=== PATIENT | male | born 1950 | race Caucasian/White ===

== ENCOUNTER 2020-03-24 09:30 | Outpatient (CLI) | payer OTHER, MEDICARE ==
--- NOTE | 2020-03-24 15:14 | MRI ---
MRI LUMBAR SPINE WITHOUT CONTRAST: 03/24/20 INDICATIONS: Left lumbar radiculopathy. History of prior lumbar surgery. The last surgery in 2003 according to rick hnologist. COMPARISON: Comparison made to a prior MRI of lumbar spine dated January 2010. That exam revealed a disc extrusion into the right neural foramina at L3-4 with question small sequestered disc fragment. FINDINGS: The lumbar vertebrae maintain normal height and alignment. Moderate degenerative changes are noted. D egenerative osteophytes from the anterior and lateral vertebrae. Degenerative disc changes at multipl e levels. Loss of disc space is prominent at L5-S1 with degenerative disc and end plate changes at th is level. L1-2: A broad based disc bulge flattens the thecal sac. Mild facet hypertrophy. Mild central canal st enosis. L2-3: Annular fissure with broad based disc bulge severely flattens the thecal sac. There is associat ed facet hypertrophy with posterior epidural fat. Moderate central canal stenosis at this level. Bila teral foraminal encroachment more severe on the left. There is abnormal extradural mass signal in the spinal canal on the left posterior to the L3 vertebra which measures 10 mm AP dimension in the axial plane. This extradural mass is most consistent with a sequestered disc fragment, probably from the L3-4 disc space with superior migration along the L3 ve rtebra on the left. This extradural mass compresses the thecal sac and displaces the traversing left L3 nerve root above the L3-4 disc. At the L3-4 disc space, there is a broad based bulge with facet hypertrophy resulting in mild to mode rate central canal stenosis. Asymmetric bulge/protrusion on the right is again seen with encroachment into the right foramina at L3-4. L4-5: There is an abnormal mass-like signal in the spinal canal on the right just above the L4-5 disc space which is consistent with a small sequestered disc fragment at this level superior to the L4-5 disc along the posterior margin of L4 on the right. This compresses the anterior thecal sac and proba kimberly displaces the traversing right L4 nerve root. At the L4-5 disc, there is a broad based bulge flattening the thecal sac. There is asymmetric protrus ion to the right with foraminal encroachment. Facet and ligamentous hypertrophy results in moderate c entral canal stenosis at the disc space level. L5-S1: Broad based disc protrusion compresses the thecal sac and produces bilateral foraminal encroac hment and stenosis. Mild central canal stenosis. There is posterior laminectomy change on the right a t this level. IMPRESSION: Multilevel degenerative disc changes. There are significant findings at each level as described above . Sequestered disc fragment is seen paracentrally on the left at L3 as described above. Sequestered d isc fragment is seen paracentrally on the right at L4 as described above. POS: AGW
== END 2020-03-24 09:31 | disposition home or self-care (01) ==
LOC: SCSMRI 09:30
PROVIDERS: ATTEND Family Medicine
DX: M51.16 Intervertebral disc disorders with radiculopathy, lumbar region (principal)
CPT/HCPCS: 72148